=== PATIENT | female | born 1990 | race Caucasian/White ===

== ENCOUNTER 2016-10-07 08:45 | Emergency (ER) ==
[2016-10-07 08:49] VITALS: BP 133/79; TEMP 98.3; BMI 35.5
--- NOTE | 2016-10-07 08:58 | ED.PDOC ---
General ED Provider: Dr. PAULY LOWE Chief Complaint: Sore Throat Stated Complaint: Patients states she has had sore throat for two days with cough and fever of 100 took tylenol today. Has also lost his voice. Time Seen by Physician: 08:55 Mode of Arrival: Walk-In Information Source: Patient Exam Limitations: No limitations Nursing and Triage Documentation Reviewed and Agree: Yes Review of Systems - Review Of Systems Constitutional: Reports: Fever Eyes: Reports: No symptoms Ears, Nose, Mouth, Throat: Reports: Throat pain Respiratory: Reports: Cough Cardiac: Reports: No symptoms GI: Reports: No symptoms : Reports: No symptoms Musculoskeletal: Reports: No symptoms Skin: Reports: No symptoms Neurological: Reports: No symptoms Endocrine: Reports: No symptoms Hematologic/Lymphatic: Reports: No symptoms All Other Systems: Reviewed and Negative Past Medical History - Past Medical History Endocrine: Reports: None Cardiovascular: Reports: None Respiratory: Reports: None Hematological: Reports: None Gastrointestinal: Reports: None Genitourinary: Reports: None Neuro/Psych: Reports: None Musculoskeletal: Reports: None Cancer: Reports: None Last Menstrual Period: 08/31/15 - Surgical History General Surgical History: Reports: None - Family History Family History: Reports: None - Social History Smoking Status: Current every day smoker, Light tobacco smoker Hx Substance Use: No Alcohol Screening: None - Immunizations Tetanus Shot up to Date: Yes Physical Exam - Physical Exam Appearance: Obese Ill-appearing: Moderate Pain Distress: Mild ENT: Erythema Respiratory: Airway patent, Breath sounds clear, Breath sounds equal, Respirations nonlabored Cardiovascular: RRR, Pulses normal, No rub, No murmur GI/: Soft, Nontender, No masses, Bowel sounds normal, No Organomegaly Musculoskeletal: Normal strength, ROM intact, No edema, No calf tenderness Skin: Warm, Dry, Normal color Neurological: Sensation intact, Motor intact, Reflexes intact, Cranial nerves intact, Alert, Oriented Psychiatric: Affect appropriate, Mood appropriate Critical Care Note - Critical Care Note Total Time (mins): 0 Course - Course Vital Signs: Temp Pulse Resp BP Pulse Ox 10/07/16 08:45 98.3 F 86 20 133/79 96 Departure - Departure Time of Disposition: 09:51 Disposition: HOME SELF-CARE Discharge Problem: Sore throat symptom, Laryngitis Instructions: Pharyngitis (ED), Laryngitis (ED) Condition: Fair Pt referred to PMD for follow-up: Yes Additional Instructions: Push fluids. Take medications as prescribed. Prescriptions: Amoxicillin [Amoxil] 500 mg PO TID #30 capsule Ibuprofen [Motrin] 600 mg PO Q6H PRN #30 tablet PRN Reason: Analgesia Allergies/Adverse Reactions: Allergies No Known Allergies Allergy (Unverified 10/07/16 08:51) Home Medications: Ambulatory Orders Amoxicillin [Amoxil] 500 mg PO TID #30 capsule 10/07/16 Ibuprofen [Motrin] 600 mg PO Q6H PRN #30 tablet 10/07/16 Disposition Discussed With: Patient
[2016-10-07 09:27] LABS: FLU INTERNAL QC INTERNAL QC VALID; RAPID FLU A NEGATIVE (NEGATIVE); RAPID FLU B NEGATIVE (NEGATIVE)
== END 2016-10-07 10:30 | disposition home or self-care (01) ==
LOC: ED 08:45
DX: J02.9 Acute pharyngitis, unspecified (principal); J04.0 Acute laryngitis
CPT/HCPCS: 87651; 87804; 87880; 99283

== ENCOUNTER 2016-11-21 13:17 | Emergency (ER) ==
[2016-11-21 13:23] VITALS: BP 114/78; TEMP 100; BMI 33.9
[2016-11-21 15:15] LABS: FLU INTERNAL QC INTERNAL QC VALID; RAPID FLU A NEGATIVE (NEGATIVE); RAPID FLU B NEGATIVE (NEGATIVE)
[2016-11-21 15:17] LABS: BASOPHILS % (AUTO) 0.4 % (0.0-3.0); HEMATOCRIT 40.6 % (37.0-47.0); HEMOGLOBIN 13.6 g/dl (12.0-16.0); IMMATURE GRANULOCYTE % (AUTO) 0.4 % (0.0-5.0); LYMPHOCYTES % (AUTO) 9.3 (10.0-50.0); MEAN CORPUSCULAR HEMOGLOBIN 30.4 pg (27.0-31.0); MEAN CORPUSCULAR HGB CONC 33.5 (31.8-35.4); MEAN CORPUSCULAR VOLUME 90.8 fl (81.0-99.0); MONOCYTES # (AUTO) 0.7 K/uL (0.4-2.0); MONOCYTES % (AUTO) 6.8 (0-10); NEUTROPHILS # (AUTO) 8.5 K/ul (2.0-6.9); NEUTROPHILS % (AUTO) 83.1; PLATELET COUNT 195 10^3/uL (140-440); RED BLOOD COUNT 4.47 10^6/ul (4.20-5.40); WHITE BLOOD COUNT 10.22 K/ul (4.6-10.2)
[2016-11-21 15:36] LABS: ALBUMIN 3.8 g/dL (3.4-5.0); ALBUMIN/GLOBULIN RATIO 0.93; ANION GAP 12.7; BILIRUBIN,TOTAL 0.36 mg/dL (0.00-1.20); BUN/CREATININE RATIO 11.49; CALCIUM 9.5 mg/dL (8.2-10.2); CREATININE 0.87 mg/dL (0.60-1.30); POTASSIUM 3.7 mmol/L (3.5-5.10); TOTAL PROTEIN 7.9 g/dL (6.4-8.2)
[2016-11-21 15:42] LABS: BILIRUBIN,URINE 1+ (NEGATIVE); KETONES,URINE 1+ (NEGATIVE); LEUKOCYTE ESTERASE ,URINE Trace (NEGATIVE); NITRITE,URINE Negative (NEGATIVE); PROTEIN,URINE 2+ (NEGATIVE); URINE PREGNANCY INTERNAL QC INTERNAL QC VALID; URINE, BLOOD Trace-lysed (NEGATIVE)
[2016-11-21 15:46] LABS: ADD URINE MICROSCOPIC YES
[2016-11-21 15:47] LABS: BACTERIA,URINE 2+ (NOT PRESENT)
--- NOTE | 2016-11-21 16:12 | DI ---
Examination: Two radiographic images of the chest. Comparison: None available. Reason for study: Cough. FINDINGS: No pneumothorax, pleural effusion, or focal consolidation. The cardiac silhouette is not enlarged. The imaged osseous structures are unremarkable. Impression: No acute cardiopulmonary process.
--- NOTE | 2016-11-21 16:41 | ED.PDOC ---
General ED Provider: Dr. AGUSTO MENSAH Chief Complaint: Respiratory Complaint Stated Complaint: cough, flu like symptoms Time Seen by Physician: 13:30 Mode of Arrival: Walk-In Information Source: Patient, Family Exam Limitations: No limitations Nursing and Triage Documentation Reviewed and Agree: Yes Respiratory Complaint Exam - Respiratory Complaint/Exam Symptoms Are: Still present Initial Severity: Mild Current Severity: Mild Location: Throat Character: Reports: Productive cough Aggravating: Reports: None Alleviating: Reports: None Associated Signs and Symptoms: Reports: Pleuritic chest pain Related History: Reports: Similar episode History of Healthcare-Acquired Pneumonia: No Related Surgical History: Reports: None Pulmonary Embolism Risk Factors: None Cardiac Risk Factors: Reports: None Pseudomonas Risk Factors: Reports: None Tuberculosis Risk Factors: Reports: None Status Asthmaticus Risk Factors: Reports: None Home Oxygen Use: No Recent Stress Test: No Recent Echo/LV Function: No Current Antibiotic Use: No Current Asthma Medication Use: No Respiratory Distress: None Inadequate Respiratory Effort: No Dysphagia Present: No Stridor Present: No JVD Present: No Accessory Muscle Use: No Retractions: Not Present Diminished Breath Sounds: No Sinus Tenderness: None Grunting Respirations: No Kussmaul Respirations: No Differential Diagnoses: Pneumonia, Bronchitis Review of Systems - Review Of Systems Constitutional: Reports: Malaise, Weakness, Loss of appetite Eyes: Reports: No symptoms Ears, Nose, Mouth, Throat: Reports: Throat pain Respiratory: Reports: Cough Cardiac: Reports: No symptoms GI: Reports: No symptoms : Reports: No symptoms Musculoskeletal: Reports: No symptoms Skin: Reports: No symptoms Neurological: Reports: No symptoms Endocrine: Reports: No symptoms Hematologic/Lymphatic: Reports: No symptoms All Other Systems: Reviewed and Negative Past Medical History - Past Medical History Endocrine: Reports: None Cardiovascular: Reports: None Respiratory: Reports: None Hematological: Reports: None Gastrointestinal: Reports: None Genitourinary: Reports: None Neuro/Psych: Reports: None Musculoskeletal: Reports: None Cancer: Reports: None Last Menstrual Period: OCT 09, 2016 - Surgical History General Surgical History: Reports: None - Family History Family History: Reports: None - Social History Smoking Status: Current every day smoker, Light tobacco smoker Hx Substance Use: No Alcohol Screening: None Physical Exam - Physical Exam Appearance: Well-appearing, No pain distress, Well-nourished Eyes: KATALINA, EOMI, Conjunctiva clear ENT: Ears normal, Nose normal, Oropharynx normal Respiratory: Airway patent, Breath sounds clear, Breath sounds equal, Respirations nonlabored Cardiovascular: RRR, Pulses normal, No rub, No murmur GI/: Soft, Nontender, No masses, Bowel sounds normal, No Organomegaly Musculoskeletal: Normal strength, ROM intact, No edema, No calf tenderness Skin: Warm, Dry, Normal color Neurological: Sensation intact, Motor intact, Reflexes intact, Cranial nerves intact, Alert, Oriented Psychiatric: Affect appropriate, Mood appropriate Interpretation - Radiology Interpretation Radiology Interpretation By: Radiologist Critical Care Note - Critical Care Note Total Time (mins): 0 Course - Course Hematology/Chemistry: 11/21/16 15:07 11/21/16 15:07 Orders, Labs, Meds: Lab Review 11/21/16 11/21/16 11/21/16 14:45 15:07 15:10 WBC 10.22 H RBC 4.47 Hgb 13.6 Hct 40.6 MCV 90.8 MCH 30.4 MCHC 33.5 RDW Coeff of Jessica 14.2 Plt Count 195 Immature Gran % (Auto) 0.4 Neut % (Auto) 83.1 Lymph % (Auto) 9.3 L [place]lin % (Auto) 6.8 Eos % (Auto) 0.0 Baso % (Auto) 0.4 Immature Gran # (Auto) 0.0 Neut # 8.5 H Lymph # 1.0 Hamlin # 0.7 Eos # 0.0 Baso # 0.0 Sodium 140 Potassium 3.7 Chloride 107 Carbon Dioxide 24 Anion Gap 12.7 BUN 10 Creatinine 0.87 Estimated GFR (MDRD) 81.00 BUN/Creatinine Ratio 11.49 Glucose 98 Calcium 9.5 Total Bilirubin 0.36 AST 15 ALT 13 Alkaline Phosphatase 73 Total Protein 7.9 Albumin 3.8 Globulin 4.1 Albumin/Globulin Ratio 0.93 Urine Color Dark Urine Clarity Cloudy Urine pH 6.0 Ur Specific [place] 1.025 Urine Protein 2+ Urine Glucose (UA) Negative Urine Ketones 1+ Urine Blood Trace-lysed Urine Nitrite Negative Urine Bilirubin 1+ Urine Urobilinogen 0.2 Ur Leukocyte Esterase Trace Urine Microscopic RBC 2-5 Urine Microscopic WBC 5-10 Ur Squamous Epith Cells 10-20 Urine Bacteria 2+ Urine Test Negative Influenza A (Rapid) Negative Influenza B (Rapid) Negative Orders Category Date Time Status BLOOD CULTURE Stat LAB 11/21/16 15:07 Received CBC W/ AUTO DIFF Stat LAB 11/21/16 15:07 Completed COMPREHENSIVE METABOLIC PANEL Stat LAB 11/21/16 15:07 Completed MOLECULAR GROUP A STREP Stat LAB 11/21/16 14:45 Results RAPID FLU A/B Stat LAB 11/21/16 14:45 Completed RAPID STREP SCREEN [STREP SCREEN] Stat LAB 11/21/16 14:45 Results URINALYSIS C & S IF INDICATED Stat LAB 11/21/16 15:10 Completed URINE CULTURE Stat LAB 11/21/16 15:10 Received URINE Stat LAB 11/21/16 15:10 Completed CHEST, 2 VIEWS PA & LAT Stat RADS 11/21/16 14:50 Completed Vital Signs: Temp Pulse Resp BP Pulse Ox 11/21/16 13:19 100 F H 97 H 16 114/78 96 Departure - Departure Time of Disposition: 16:40 Disposition: HOME SELF-CARE Discharge Problem: Bronchitis Instructions: Acute Bronchitis (ED), Wheezing (ED), Bronchospasm (ED), How Your Lungs Work (ED), Effects of Smoking, Alcohol, and Medicines on (ED), How to Stop Smoking (ED), Secondhand Smoke Exposure in Children (ED) Condition: Good Pt referred to PMD for follow-up: No Allergies/Adverse Reactions: Allergies No Known Allergies Allergy (Unverified 11/21/16 13:18) Home Medications: Ambulatory Orders 1 [No Reported Medications] 11/21/16
== END 2016-11-21 16:56 | disposition home or self-care (01) ==
LOC: ED 13:17
DX: J20.9 Acute bronchitis, unspecified (principal); F17.210 Nicotine dependence, cigarettes, uncomplicated
CPT/HCPCS: 36415; 80053; 81001; 81025; 85025; 87040; 87086; 87651; 87804; 87880; 99283

== ENCOUNTER 2017-08-31 18:40 | Outpatient (CLI) | END 2017-08-31 18:41 | disposition short-term general hospital (02) | LOC: AMBL 18:40 | PROVIDERS: ATTEND Internal Medicine | DX: O60.03 Preterm labor without delivery, third trimester (principal); Z3A.33 33 weeks gestation of pregnancy ==

== ENCOUNTER 2018-05-06 16:13 | Emergency (ER) | payer OTHER ==
[2018-05-06 16:17] VITALS: BP 128/78; TEMP 97.8; BMI 37.1
--- NOTE | 2018-05-06 16:42 | ED.PDOC ---
General ED Provider: Dr. AGUSTO MENSAH Chief Complaint: Fall Stated Complaint: FELL THROUGH THE PORCH Time Seen by Physician: 16:14 (SEEN WITH KEDAR AT ALL TIMES NO NECK PAIN , NO VERTEBRAL POINT TENDERNESS) Mode of Arrival: Walk-In Information Source: Patient Exam Limitations: No limitations Nursing and Triage Documentation Reviewed and Agree: Yes Does patient meet sepsis criteria?: No If yes, has appropriate treatment been initiated?: No System Inflammatory Response Syndrome: Not Applicable Sepsis Protocol: For patient's 13 years and over: Temp is 96.8 and below OR 101 and greater Pulse >90 BPM Resp >20/minute Acutely Altered Mental Status Are patient's symptoms suggestive of a new infection, such as: -Pneumonia -Skin, Soft Tissue -Endocarditis -UTI -Bone, Joint Infection -Implantable Device -Acute Abdominal Infection -Wound Infection -Meningitis -Blood Stream Catheter Infection -Unknown Trauma/Injury Complaint Exam - Trauma Complaint/Exam Location of Pain or Injury: Reports: Other (RIGHT FOOT AND ANKLE LEFT TIGH ) Mechanism of Injury: Reports: Fall Onset/Duration: 1 DAY Symptoms Are: Still present Timing of Treatment: Immediate Initial Severity: Mild Current Severity: Mild Character: Reports: Aching Aggravating: Reports: Movement, Weight-bearing Alleviating: Reports: Rest Associated Signs and Symptoms: Reports: Bruising (SEE PHOTOS). Denies: LOC, Confusion, Memory loss, Lethargy, Vomiting, Bleeding, Swelling, Extremity disuse , Painful respiration, Hoarseness, Dysphagia, Hemoptysis, Significant blood loss Nexus Low Risk Criteria: No post-midline CS tender, No evidence of intoxicat., No Altered LOC, No focal neuro deficit, No distracting injuries Glascow Coma Scale (see protocol): 15 Review of Systems - Review Of Systems Constitutional: Reports: No symptoms Eyes: Reports: No symptoms Ears, Nose, Mouth, Throat: Reports: No symptoms Respiratory: Reports: No symptoms Cardiac: Reports: No symptoms GI: Reports: No symptoms : Reports: No symptoms Musculoskeletal: Reports: Joint pain (RIGHT ANKLE AND FOOT PAIN) Skin: Reports: Other (BRUSING LEFT TIGH) Neurological: Reports: No symptoms Endocrine: Reports: No symptoms Hematologic/Lymphatic: Reports: No symptoms All Other Systems: Reviewed and Negative Past Medical History - Past Medical History Endocrine: Reports: None Cardiovascular: Reports: None Respiratory: Reports: None Hematological: Reports: None Gastrointestinal: Reports: None Genitourinary: Reports: None Neuro/Psych: Reports: None Musculoskeletal: Reports: None Cancer: Reports: None Last Menstrual Period: 04/08/18 - Surgical History General Surgical History: Reports: None - Family History Family History: Reports: None - Social History Smoking Status: Current every day smoker, Light tobacco smoker Hx Substance Use: No Alcohol Screening: None Physical Exam - Physical Exam Appearance: Well-appearing, No pain distress, Well-nourished Eyes: KATALINA, EOMI, Conjunctiva clear ENT: Ears normal, Nose normal, Oropharynx normal Respiratory: Airway patent, Breath sounds clear, Breath sounds equal, Respirations nonlabored Cardiovascular: RRR, Pulses normal, No rub, No murmur GI/: Soft, Nontender, No masses, Bowel sounds normal, No Organomegaly Musculoskeletal: Normal strength, ROM intact, No edema, No calf tenderness Skin: Warm, Dry (BRUSING LEFT TIGH) Neurological: Sensation intact, Motor intact, Reflexes intact, Cranial nerves intact, Alert, Oriented Psychiatric: Affect appropriate, Mood appropriate Interpretation - Radiology Interpretation Radiology Interpretation By: Radiologist Radiology Results: No acute changes Critical Care Note - Critical Care Note Total Time (mins): 0 Course - Course Orders, Labs, Meds: Orders Category Date Time Status Air cast [ED SPLINT APPLICATION] .ONCE EMERGENCY 05/06/18 16:47 Ordered ED CRUTCHES .ONCE EMERGENCY 05/06/18 16:47 Ordered Vital Signs: Temp Pulse Resp BP Pulse Ox 05/06/18 16:14 97.8 F 68 16 128/78 98 Departure - Departure Time of Disposition: 05:20 Disposition: HOME SELF-CARE Discharge Problem: Sprain of foot, right Qualifiers: Encounter type: initial encounter Qualified Code(s): S93.601A - Unspecified sprain of right foot, initial encounter Right ankle sprain Qualifiers: Encounter type: initial encounter Involved ligament of ankle: unspecified ligament Qualified Code(s): S93.401A - Sprain of unspecified ligament of right ankle, initial encounter Contusion of thigh, left Qualifiers: Encounter type: initial encounter Qualified Code(s): S70.12XA - Contusion of left thigh, initial encounter Instructions: Ankle Sprain (ED), Contusion in Adults (ED) Condition: Good Pt referred to PMD for follow-up: Yes IPMP verified?: No Additional Instructions: Please call your Family Physician as soon as possible to schedule a follow-up appointment.USE CRUTCHED AND DO FOLLOW UP WITH THE CLINIC. Allergies/Adverse Reactions: Allergies No Known Allergies Allergy (Verified 05/06/18 16:18) Home Medications: Ambulatory Orders 1 [No Reported Medications] 05/06/18 Disposition Discussed With: Patient, Family
--- NOTE | 2018-05-07 07:34 | DI ---
EXAM: Three views of the right ankle HISTORY: Right ankle pain. COMPARISON: Left ankle x-rays 12/12/1999 a FINDINGS: Soft tissues are unremarkable. There is no lytic or blastic lesion. The joint spaces are maintained. There is no displaced fracture or dislocation. There is no periosteal reaction. The hi nd foot structures are normal. IMPRESSION: No acute abnormality of the right ankle.
--- NOTE | 2018-05-07 07:35 | DI ---
EXAM: Radiographs, right foot HISTORY: Initial presentation for right foot trauma. COMPARISON: None available. TECHNIQUE: Three views. FINDINGS: Bone mineralization is normal. There is no fracture or dislocation. The joint spaces are maintained. No focal soft tissue abnormality is seen. IMPRESSION: No fracture or dislocation.
== END 2018-05-06 18:05 | disposition home or self-care (01) ==
LOC: ED 16:13
DX: S93.601A Unspecified sprain of right foot, initial encounter (principal); S93.401A Sprain of unspecified ligament of right ankle, initial encounter; S70.12XA Contusion of left thigh, initial encounter; F17.210 Nicotine dependence, cigarettes, uncomplicated; W19.XXXA Unspecified fall, initial encounter
CPT/HCPCS: 99283

== ENCOUNTER 2018-09-20 01:03 | Emergency (ER) ==
[2018-09-20 01:05] VITALS: BP 127/77; TEMP 97.9; BMI 38.7
--- NOTE | 2018-09-20 01:17 | ED.PDOC ---
General ED Provider: Dr. PAULY LOWE Chief Complaint: Back Pain Stated Complaint: one day history of lower back pain bilaterally. Denies any kind of injury Time Seen by Physician: 01:15 Mode of Arrival: Walk-In Information Source: Patient Exam Limitations: No limitations Nursing and Triage Documentation Reviewed and Agree: Yes Does patient meet sepsis criteria?: No System Inflammatory Response Syndrome: Not Applicable Sepsis Protocol: For patient's 13 years and over: Temp is 96.8 and below OR 101 and greater Pulse >90 BPM Resp >20/minute Acutely Altered Mental Status Are patient's symptoms suggestive of a new infection, such as: -Pneumonia -Skin, Soft Tissue -Endocarditis -UTI -Bone, Joint Infection -Implantable Device -Acute Abdominal Infection -Wound Infection -Meningitis -Blood Stream Catheter Infection -Unknown Review of Systems - Review Of Systems Constitutional: Reports: No symptoms Eyes: Reports: No symptoms Ears, Nose, Mouth, Throat: Reports: No symptoms Respiratory: Reports: No symptoms Cardiac: Reports: No symptoms GI: Reports: No symptoms : Reports: No symptoms Musculoskeletal: Reports: Back pain Skin: Reports: No symptoms Neurological: Reports: Anxiety Endocrine: Reports: No symptoms Hematologic/Lymphatic: Reports: No symptoms All Other Systems: Reviewed and Negative Past Medical History - Past Medical History Endocrine: Reports: None Cardiovascular: Reports: None Respiratory: Reports: None Hematological: Reports: None Gastrointestinal: Reports: None Genitourinary: Reports: None Neuro/Psych: Reports: None Musculoskeletal: Reports: None Cancer: Reports: None Last Menstrual Period: 2 DAYS AGO - Surgical History General Surgical History: Reports: None - Family History Family History: Reports: None - Social History Smoking Status: Current every day smoker, Light tobacco smoker Hx Substance Use: No Alcohol Screening: None Physical Exam - Physical Exam Appearance: Obese Pain Distress: Severe Neck: Supple Respiratory: Airway patent, Breath sounds clear, Breath sounds equal, Respirations nonlabored Cardiovascular: RRR, Pulses normal, No rub, No murmur GI/: Soft, Nontender, No masses, Bowel sounds normal, No Organomegaly Musculoskeletal: Normal strength, ROM intact, No edema Skin: Warm, Dry, Normal color Neurological: Sensation intact, Motor intact, Reflexes intact, Cranial nerves intact, Alert, Oriented Psychiatric: Anxious Critical Care Note - Critical Care Note Total Time (mins): 0 Course - Course Orders, Labs, Meds: Orders Category Date Time Status Meperidine HCl/Pf [Demerol 50 mg/ml Vial] MEDS 09/20/18 01:19 Discontinued 50 mg IM ONCE STA Promethazine HCl [Phenergan 25 mg/ml Vial] MEDS 09/20/18 01:21 Discontinued 25 mg IM ONCE STA Medications Discontinued Medications Generic Name Dose Route Start Last Admin Trade Name Freq PRN Reason Stop Dose Admin Meperidine HCl 50 mg 09/20/18 01:19 09/20/18 01:33 Demerol 50 Mg/Ml Vial IM 09/20/18 01:20 50 mg ONCE STA Administration Promethazine HCl 25 mg 09/20/18 01:21 09/20/18 01:32 Phenergan 25 Mg/Ml Vial IM 09/20/18 01:22 25 mg ONCE STA Administration Vital Signs: Temp Pulse Resp BP Pulse Ox 09/20/18 01:03 97.9 F 82 14 127/77 98 Departure - Departure Time of Disposition: 02:00 Disposition: HOME SELF-CARE Discharge Problem: Backache Instructions: Low Back Strain (ED) Condition: Stable Pt referred to PMD for follow-up: Yes IPMP verified?: No Additional Instructions: Take Medications as prescribed Follow up with PCP in 3 days Prescriptions: Ibuprofen [Motrin] 600 mg PO Q6H PRN #30 tablet PRN Reason: Analgesia Tramadol HCl [Ultram] 50 mg PO Q6H PRN #14 tablet PRN Reason: Severe Pain Allergies/Adverse Reactions: Allergies No Known Allergies Allergy (Verified 09/20/18 01:05) Home Medications: Ambulatory Orders Ibuprofen [Motrin] 600 mg PO Q6H PRN #30 tablet 09/20/18 Tramadol HCl [Ultram] 50 mg PO Q6H PRN #14 tablet 09/20/18 Disposition Discussed With: Patient
[2018-09-20] MEDS ORDERED: DEMEROL 50 MG/ML VIAL IM STA (01:19)
[2018-09-20] MEDS ORDERED: PHENERGAN 25 MG/ML VIAL IM STA (01:21)
== END 2018-09-20 02:00 | disposition home or self-care (01) ==
LOC: ED 01:03
DX: M54.5 Low back pain (principal); F17.210 Nicotine dependence, cigarettes, uncomplicated
CPT/HCPCS: 96372; 99282

== ENCOUNTER 2018-12-17 14:57 | Emergency (ER) ==
[2018-12-17 15:05] VITALS: BP 129/81; BMI 37.4
[2018-12-17] MEDS ORDERED: TORADOL IM STA (15:30)
--- NOTE | 2018-12-17 15:30 | ED.PDOC ---
General ED Provider: Dr. CASEY MCDONNELL Chief Complaint: Sore Throat Stated Complaint: Severe Sore Throat. Complains of nausea and vomiting, chills and fever. Unable to take meds due to her nausea and severe sore throat. Time Seen by Physician: 15:30 Mode of Arrival: Walk-In Information Source: Patient Exam Limitations: No limitations Nursing and Triage Documentation Reviewed and Agree: Yes Does patient meet sepsis criteria?: Yes If yes, has appropriate treatment been initiated?: Yes System Inflammatory Response Syndrome: Temp 101F or Greater, Pulse >90 BPM Sepsis Protocol: For patient's 13 years and over: Temp is 96.8 and below OR 101 and greater Pulse >90 BPM Resp >20/minute Acutely Altered Mental Status Are patient's symptoms suggestive of a new infection, such as: -Pneumonia -Skin, Soft Tissue -Endocarditis -UTI -Bone, Joint Infection -Implantable Device -Acute Abdominal Infection -Wound Infection -Meningitis -Blood Stream Catheter Infection -Unknown EENT Complaint Exam - Throat Complaint/Exam Onset/Duration: 2 days Symptoms Are: Worse Timimg: Constant Initial Severity: Moderate Current Severity: Severe Aggravating: Reports: Eating Alleviating: Reports: None Associated Signs and Symptoms: Reports: Fever, Dysphagia, Foreign body sensation , Chills Related History: Denies: Similar Episode Uvula Midline: Yes Malaika-tonsillar Fluctuence: Yes Scarlatinaform Rash Present: Yes Lesions: Present: Lip, Pharynx Exanthem: Present: Lip, Pharynx Stridor Present: No Sinus Tenderness Present: No Tonsillar Hypertrophy Present: Yes Tonsillar Exudate Present: Yes Malaika-tonsillar Swelling Present: Yes Adenopathy Present: Yes Differential Diagnoses: Tonsillitis Review of Systems - Review Of Systems Constitutional: Reports: Chills, Fever, Malaise, Weakness, Loss of appetite Eyes: Reports: No symptoms Ears, Nose, Mouth, Throat: Reports: Mouth pain, Throat pain Respiratory: Reports: No symptoms Cardiac: Reports: No symptoms GI: Reports: Abdominal pain (suprapubic), Nausea, Poor appetite, Poor fluid intake : Reports: No symptoms Musculoskeletal: Reports: No symptoms Skin: Reports: No symptoms. Denies: Rash Neurological: Reports: No symptoms Endocrine: Reports: No symptoms Hematologic/Lymphatic: Reports: No symptoms All Other Systems: Reviewed and Negative Past Medical History - Past Medical History Endocrine: Reports: None Cardiovascular: Reports: None Respiratory: Reports: None Hematological: Reports: None Gastrointestinal: Reports: None Genitourinary: Reports: None Neuro/Psych: Reports: None Musculoskeletal: Reports: None Cancer: Reports: None Last Menstrual Period: november 18 - Surgical History General Surgical History: Reports: None - Family History Family History: Reports: None - Social History Smoking Status: Never smoker Hx Substance Use: No Alcohol Screening: None Physical Exam - Physical Exam Appearance: Ill-appearing, Obese Ill-appearing: Mild Pain Distress: Moderate Eyes: KATALINA, EOMI, Conjunctiva clear ENT: Ears normal, Nose normal, Oropharynx normal, Erythema Neck: Supple Respiratory: Airway patent, Breath sounds clear, Breath sounds equal, Respirations nonlabored Cardiovascular: RRR, Pulses normal, No rub, No murmur GI/: Soft, Nontender, No masses, Bowel sounds normal, No Organomegaly Musculoskeletal: Normal strength, ROM intact, No edema, No calf tenderness Skin: Warm, Dry, Normal color Neurological: Sensation intact, Motor intact, Reflexes intact, Cranial nerves intact, Alert, Oriented Psychiatric: Affect appropriate, Mood appropriate Critical Care Note - Critical Care Note Total Time (mins): 30 Course - Course Orders, Labs, Meds: Orders Category Date Time Status FLU A/B MOLECULAR Stat LAB 12/17/18 15:05 Received RAPID STREP SCREEN [MOLECULAR GROUP A STREP] Stat LAB 12/17/18 15:05 Completed Vital Signs: Temp Pulse Resp BP Pulse Ox 12/17/18 14:57 102.3 F H 116 H 20 129/81 94 L Departure - Departure Time of Disposition: 16:10 Disposition: HOME SELF-CARE Discharge Problem: Strep tonsillitis Instructions: Tonsillitis (ED) Condition: Good Pt referred to PMD for follow-up: Yes (PCP 1 wk to 10 days) IPMP verified?: No Additional Instructions: Maintain adequate oral fluids intake Advance diet per tolerance Tylenol or advil for pain or temp above 101 degrees Rest Amoxicillin 875 mg twice daily for 10 days as directed See PCP in 5-8 days as needed for follow up Prescriptions: Amoxicillin 875 mg PO BID #20 tablet Ondansetron [Zofran Odt] 4 mg PO Q8H PRN #7 tab.rapdis PRN Reason: Nausea and vomiting Allergies/Adverse Reactions: Allergies No Known Allergies Allergy (Verified 04/23/19 14:59) Home Medications: Ambulatory Orders Amoxicillin 875 mg PO BID #20 tablet 12/17/18 Ondansetron [Zofran Odt] 4 mg PO Q8H PRN #7 tab.rapdis 12/17/18 Disposition Discussed With: Patient
[2018-12-17] MEDS ORDERED: PHENERGAN 25 MG/ML VIAL IM STA (15:31)
[2018-12-17 16:17] VITALS: TEMP 101.7
== END 2018-12-17 16:25 | disposition home or self-care (01) ==
LOC: ED 14:57
DX: J03.00 Acute streptococcal tonsillitis, unspecified (principal)
CPT/HCPCS: 87502; 87651; 96372; 99283

== ENCOUNTER 2019-03-16 18:46 | Emergency (ER) ==
[2019-03-16 18:49] VITALS: BP 112/79; TEMP 97.4; BMI 35.9
[2019-03-16] MEDS ORDERED: BENADRYL IM STA (18:57)
[2019-03-16] MEDS ORDERED: ATIVAN IM STA (18:57)
--- NOTE | 2019-03-16 20:04 | ED.PDOC ---
General ED Provider: Dr. CASEY SAMUELS-ER Chief Complaint: Non-specific Complaint Stated Complaint: tammie got the shakes since starting the celexa Time Seen by Physician: 18:50 Mode of Arrival: Walk-In Information Source: Patient Exam Limitations: No limitations Primary Care Provider: MARIA M LYNNE Nursing and Triage Documentation Reviewed and Agree: Yes Does patient meet sepsis criteria?: No System Inflammatory Response Syndrome: Not Applicable Sepsis Protocol: For patient's 13 years and over: Temp is 96.8 and below OR 101 and greater Pulse >90 BPM Resp >20/minute Acutely Altered Mental Status Are patient's symptoms suggestive of a new infection, such as: -Pneumonia -Skin, Soft Tissue -Endocarditis -UTI -Bone, Joint Infection -Implantable Device -Acute Abdominal Infection -Wound Infection -Meningitis -Blood Stream Catheter Infection -Unknown Musculoskeletal Complaint Exam - Upper Extremity Complaint/Exam Location of Pain: Reports: Arm Mechanism of Injury: Reports: No known trauma Symptoms Are: Still present Initial Severity: Mild Current Severity: Moderate Location: Reports: Discrete Character: Reports: Spasmodic Aggravating: Reports: None Alleviating: Reports: None Non-Orthopedic Risk Factors: Reports: None Related Surgical History: Reports: None Upper Extremity Findings: Present: Tenderness NV Bundle Intact Distal to Injury: Yes Compartment Syndrome Risk Factors: Present: Pain Differential Diagnoses: Other Quality Indicator For Non-Traumatic Chest Pain/Syncope: EKG Performed Review of Systems - Review Of Systems Constitutional: Reports: No symptoms Eyes: Reports: No symptoms Ears, Nose, Mouth, Throat: Reports: No symptoms Respiratory: Reports: No symptoms Cardiac: Reports: No symptoms GI: Reports: No symptoms : Reports: No symptoms Musculoskeletal: Reports: Muscle pain Skin: Reports: No symptoms Neurological: Reports: Other (tremor of extremities) Endocrine: Reports: No symptoms Hematologic/Lymphatic: Reports: No symptoms All Other Systems: Reviewed and Negative Past Medical History - Past Medical History Previously Healthy: No Endocrine: Reports: None Cardiovascular: Reports: None Respiratory: Reports: None Hematological: Reports: None Gastrointestinal: Reports: None Genitourinary: Reports: None Neuro/Psych: Reports: None Musculoskeletal: Reports: None Cancer: Reports: None Last Menstrual Period: 2 weeks - Surgical History General Surgical History: Reports: None - Family History Family History: Reports: None - Social History Smoking Status: Never smoker Hx Substance Use: No Alcohol Screening: None - Immunizations Tetanus Shot up to Date: Yes Physical Exam - Physical Exam Appearance: Well-appearing, No pain distress, Well-nourished Eyes: KATALINA, EOMI, Conjunctiva clear ENT: Ears normal, Nose normal, Oropharynx normal Neck: Supple Respiratory: Airway patent, Breath sounds clear, Breath sounds equal, Respirations nonlabored Cardiovascular: RRR, Pulses normal, No rub, No murmur GI/: Soft, Nontender, No masses, Bowel sounds normal, No Organomegaly Musculoskeletal: Normal strength, ROM intact, No edema, No calf tenderness Skin: Warm Neurological: Alert, Oriented (noted tremor) Psychiatric: Affect appropriate, Mood appropriate, Anxious Interpretation - Radiology Interpretation Radiology Interpretation By: ED Physician Radiology Results: Negative Exam Interpreted: CXR - EKG Interpretation Time of EKG #1: 20:04 Rate: Normal Rhythm: Sinus Ectopy: None [place]: NL ST Segment: Normal Interpretation: nsr Re-Evaluation - Re-Evaluation Time of Re-Evaluation: 20:04 Status: Improved Vital Signs Stable: Yes Pain Level: 0 Appearance: NAD Lungs: Clear Skin: Warm and Dry Neuro: Alert and Oriented X3 CV: RRR Additional Comments: tremor resolved---patient resting quietly without complaint ---denies cp/sob Critical Care Note - Critical Care Note Total Time (mins): 0 Course - Course Hematology/Chemistry: 03/16/19 19:07 03/16/19 19:07 Orders, Labs, Meds: Lab Review 03/16/19 03/16/19 03/16/19 19:00 19:07 19:07 WBC 9.07 RBC 4.32 Hgb 13.5 Hct 40.0 MCV 92.6 MCH 31.3 H MCHC 33.8 RDW Coeff of Jessica 12.9 Plt Count 295 Immature Gran % (Auto) 0.4 Neut % (Auto) 71.8 Lymph % (Auto) 20.7 Early % (Auto) 4.5 Eos % (Auto) 1.9 Baso % (Auto) 0.7 Immature Gran # (Auto) 0.0 Neut # (Auto) 6.5 Lymph # (Auto) 1.9 Early # (Auto) 0.4 Eos # (Auto) 0.2 Baso # (Auto) 0.1 ESR D-Dimer (Manual) Sodium 141.8 Potassium 3.88 Chloride 102.1 Carbon Dioxide 28.6 Anion Gap 14.98 BUN 12.0 Creatinine 0.83 Estimated GFR (MDRD) 83.00 BUN/Creatinine Ratio 14.45 Glucose 87.6 Calcium 9.74 Total Bilirubin 0.31 AST 19.1 ALT 25.0 Alkaline Phosphatase 81.4 Total Protein 8.10 Albumin 4.51 Globulin 3.59 Albumin/Globulin Ratio 1.25 TSH Free T4 Serum , Qual Urine Color Yellow Urine Clarity Clear Urine pH 6.5 Ur Specific Ramey 1.020 Urine Protein Negative Urine Glucose (UA) Negative Urine Ketones Negative Urine Blood Negative Urine Nitrite Negative Urine Bilirubin Negative Urine Urobilinogen 0.2 Ur Leukocyte Esterase Trace Ur Squamous Epith Cells 5-10 Urine Bacteria Trace Hyaline Casts 0-2 03/16/19 03/16/19 03/16/19 19:07 19:07 19:07 WBC RBC Hgb Hct MCV MCH MCHC RDW Coeff of Jessica Plt Count Immature Gran % (Auto) Neut % (Auto) Lymph % (Auto) Early % (Auto) Eos % (Auto) Baso % (Auto) Immature Gran # (Auto) Neut # (Auto) Lymph # (Auto) Early # (Auto) Eos # (Auto) Baso # (Auto) ESR 20 D-Dimer (Manual) Sodium Potassium Chloride Carbon Dioxide Anion Gap BUN Creatinine Estimated GFR (MDRD) BUN/Creatinine Ratio Glucose Calcium Total Bilirubin AST ALT Alkaline Phosphatase Total Protein Albumin Globulin Albumin/Globulin Ratio TSH 1.740 Free T4 0.97 Serum , Qual Urine Color Urine Clarity Urine pH Ur Specific Ramey Urine Protein Urine Glucose (UA) Urine Ketones Urine Blood Urine Nitrite Urine Bilirubin Urine Urobilinogen Ur Leukocyte Esterase Ur Squamous Epith Cells Urine Bacteria Hyaline Casts 03/16/19 03/16/19 19:07 19:07 WBC RBC Hgb Hct MCV MCH MCHC RDW Coeff of Jessica Plt Count Immature Gran % (Auto) Neut % (Auto) Lymph % (Auto) Early % (Auto) Eos % (Auto) Baso % (Auto) Immature Gran # (Auto) Neut # (Auto) Lymph # (Auto) Early # (Auto) Eos # (Auto) Baso # (Auto) ESR D-Dimer (Manual) 607.52 Sodium Potassium Chloride Carbon Dioxide Anion Gap BUN Creatinine Estimated GFR (MDRD) BUN/Creatinine Ratio Glucose Calcium Total Bilirubin AST ALT Alkaline Phosphatase Total Protein Albumin Globulin Albumin/Globulin Ratio TSH Free T4 Serum , Qual Negative Urine Color Urine Clarity Urine pH Ur Specific Ramey Urine Protein Urine Glucose (UA) Urine Ketones Urine Blood Urine Nitrite Urine Bilirubin Urine Urobilinogen Ur Leukocyte Esterase Ur Squamous Epith Cells Urine Bacteria Hyaline Casts Orders Category Date Time Status EKG-(ED ONLY) Stat CARDIO 03/16/19 18:56 Completed ED TROUBLE DISPATCHER APPLIED .ONCE EMERGENCY 03/16/19 18:56 Active CBC W/ AUTO DIFF Stat LAB 03/16/19 19:07 Completed COMPREHENSIVE METABOLIC PANEL Stat LAB 03/16/19 19:07 Completed D-DIMER Stat LAB 03/16/19 19:07 Completed ESR Stat LAB 03/16/19 19:07 Completed FREE T4 (FREE THYROXINE) Stat LAB 03/16/19 19:07 Completed SERUM Stat LAB 03/16/19 19:07 Completed THYROID STIMULATING HORMONE Stat LAB 03/16/19 19:07 Completed URINALYSIS C & S IF INDICATED Stat LAB 03/16/19 19:00 Completed Diphenhydramine Inj [Benadryl] MEDS 03/16/19 18:57 Discontinued 25 mg IM ONCE STA Lorazepam [Ativan] MEDS 03/16/19 18:57 Discontinued 2 mg IM ONCE STA CXR [CHEST, 2 VIEWS PA & LAT] Stat RADS 03/16/19 18:56 Taken Medications Discontinued Medications Generic Name Dose Route Start Last Admin Trade Name Gasper PRN Reason Stop Dose Admin Diphenhydramine HCl 25 mg 03/16/19 18:57 03/16/19 19:03 Benadryl IM 03/16/19 18:58 25 mg ONCE STA Administration Lorazepam 2 mg 03/16/19 18:57 03/16/19 19:03 Ativan IM 03/16/19 18:58 2 mg ONCE STA Administration Vital Signs: Temp Pulse Resp BP Pulse Ox 03/16/19 18:46 97.4 F L 80 14 112/79 99 Departure - Departure Time of Disposition: 20:05 Disposition: HOME SELF-CARE Discharge Problem: Tremor Instructions: Tremors (ED) Condition: Good Pt referred to PMD for follow-up: Yes IPMP verified?: No Additional Instructions: stay off celexa---can use benadryl if any further tremors====f/u in clinic Allergies/Adverse Reactions: Allergies No Known Allergies Allergy (Verified 03/16/19 18:49) Disposition Discussed With: Patient
--- NOTE | 2019-03-17 07:27 | DI ---
EXAM: CHEST FRONTAL AND LATERAL VIEWS HISTORY: Cough. COMPARISON: 11/21/2016 FINDINGS: Heart size and mediastinal contour remain within normal limits. No acute infiltrates. Normal vascularity with no pleural fluid or pneumothorax. The bony thorax has no acute finding. IMPRESSION: No acute cardiopulmonary process.
== END 2019-03-16 20:10 | disposition home or self-care (01) ==
LOC: ED 18:46
DX: R25.1 Tremor, unspecified (principal); M79.10 Myalgia, unspecified site
CPT/HCPCS: 36415; 80053; 81001; 84439; 84443; 84703; 85025; 85379; 85651; 93005; 93010; 96372; 99283

== ENCOUNTER 2019-04-22 14:17 | Outpatient (CLI) ==
[2019-03-18 18:10] VITALS: BMI 36.8
== END 2019-04-22 14:18 | disposition home or self-care (01) ==
LOC: RHC-LAB 14:17
PROVIDERS: ATTEND Nurse Practitioner Family
DX: Z00.00 Encounter for general adult medical examination without abnormal findings (principal); E66.9 Obesity, unspecified; F41.9 Anxiety disorder, unspecified
CPT/HCPCS: 36415; 80053; 80061; 84443; 85025